=== PATIENT | female | born 1935 | race Caucasian/White ===

== ENCOUNTER 2017-09-02 12:23 | Emergency (ER) | payer OTHER ==
--- NOTE | 2017-09-02 14:16 | RAD REPORT ---
EXAM DESCRIPTION: CT - [id number] - 09/02/2017 2:01 pm CLINICAL HISTORY: Trauma, head and neck injury. COMPARISON: None. TECHNIQUE: Axial 5 mm thick images of the head were obtained. Axial 2 mm thick images of the cervical spine were obtained with sagittal and coronal reconstruction images generated and reviewed. All CT scans are performed using dose optimization technique as appropriate and may include automated exposure control or mA/KV adjustment according to patient size. FINDINGS: CT HEAD WITHOUT CONTRAST: No acute hemorrhage, hydrocephalus or extra-axial collection is identified.Moderate generalized brain atrophy is present with mild periventricular and deep white matter chronic microvascular ischemic ch anges.No areas of brain edema or midline shift. The paranasal sinuses and mastoids are clear.The calvarium is intact. CT CERVICAL SPINE WITHOUT CONTRAST: No fracture or subluxation.Advanced midcervical degenerative change is present that C4-5 and C5-6 wit h kyphosis. 2 mm retrolisthesis of C5 on 6 is noted. 2 mm retrolisthesis of C6 on 7 is seen.No prever tebral soft tissues swelling is identified. Heavy carotid calcifications. IMPRESSION: No acute intracranial or cervical spine findings. Advanced midcervical degenerative change.
--- NOTE | 2017-09-02 15:36 | ER ---
Nurse's Notes [facility] Name: Charlotte Blake Age: 81 yrs Sex: Female : 1935 Arrival Date: 09/02/2017 Time: 12:34 Bed 13 Private MD: Diagnosis: Superficial injury of head;Headache Presentation: 09/02 12:34 Presenting complaint: EMS states: was called for an unwitnessed fall, per [place], pt hj was seen laying on the side of the bed, apparently from a fall, per pt, she wanted to go to the bathroom and she slipped and fell; complaints of L temporal headache; no obvious deformity; denies nausea and vomiting; pt is incontinent; BGL- 137; A\T\O x3 on and off, with hx of dementia;. Transition of care: patient was not received from another setting of care. Onset of symptoms was September 02, 2017. Initial Sepsis Screen: Does the patient meet any 2 criteria? No. Patient's initial sepsis screen is negative. Does the patient have a suspected source of infection? No. Patient's initial sepsis screen is negative. Care prior to arrival: None. 12:34 Method Of Arrival: EMS: [facility] 12:34 Acuity: [place] 4 12:36 Mechanism of Injury: Fall. Trauma event details: Injury occurred in the [place], Injury occurred: at home. Injury occurred: September 02, 2017. Triage Assessment: 12:45 General: Appears in no apparent distress. uncomfortable, Behavior is calm, cooperative, hj appropriate for age. Pain: Complains of pain in L temporal. Trauma Activation: Not Applicable Physician: ED Physician; Name: ; Notified At: ; Arrived At: Physician: General Surgeon; Name: ; Notified At: ; Arrived At: Physician: Radiology; Name: ; Notified At: ; Arrived At: Physician: Respiratory; Name: ; Notified At: ; Arrived At: Physician: Lab; Name: ; Notified At: ; Arrived At: Historical: - Allergies: 12:41 No Known Allergies; hj - Home Meds: 12:41 carvedilol 3.125 mg oral tab 1 tab 2 times per day [Active]; levothyroxine 50 mcg tab 1 hj tab once daily [Active]; olanzapine 20 mg oral tab 1 tab once daily [Active]; pantoprazole 40 mg oral TbEC 1 tab once daily [Active]; paroxetine HCl 10 mg oral tab 1 tab once daily [Active]; trazodone 100 mg Oral tab 2 tabs nightly [Active]; - PMHx: 12:41 Atrial Fib; hj - PSHx: 12:41 Unable to obtain; hj - Immunization history:: Adult Immunizations up to date. - Social history:: Smoking status: Patient/guardian denies using tobacco, Patient/guardian denies using alcohol. - Immunization history: Last tetanus immunization: unknown. Screenin:41 Abuse screen: Denies threats or abuse. Denies injuries from another. Nutritional hj screening: No deficits noted. Tuberculosis screening: No symptoms or risk factors identified. Fall Risk Fall in past 12 months (25 points). Secondary diagnosis (15 points). Primary Survey: 12:40 A: Airway: patent, No supplemental oxygen in use on arrival. Oral cavity: clear, gag hj reflex present, Trachea midline. Breathing/Chest: Respiratory pattern: regular, Respiratory effort: spontaneous, unlabored, Breath sounds: clear, Chest inspection: symmetrical rise and fall of the chest. Circulation: Cardiac rhythm: sinus rhythm Heart tones present. Pulses: palpable right radial artery and left radial artery. Skin color: pink, Skin temperature: warm, dry. Disability Alert. 12:45 Reassessment Airway Airway Patent Oxygen No O2 Oral cavity Clear +Gag reflex Trachea hj Midline Breathing/Chest Respiratory pattern Regular Respiratory effort Spontaneous Unlabored Breath sounds Clear Chest inspection Symmetrical Circulation Heart rhythm Atrial fibrillation Heart tones Present Pulses Palpable Color [place] Temperature Warm Dry Disability Alert. Secondary Survey: 12:40 HEENT: Head Other complaints of L caodaism area pain;. hj 12:40 Gastrointestinal: No deficits noted. : No signs and/or symptoms were reported hj regarding the genitourinary system. Musculoskeletal: Reports pain in L caodaism. Assessment: 12:34 General: Appears in no apparent distress. uncomfortable, Behavior is calm, cooperative, hj appropriate for age. Pain: Complains of pain in L caodaism. Neuro: Level of Consciousness is awake, alert, obeys commands, Oriented to person, place, time, situation, Appropriate for age. EENT: No signs and/or symptoms were reported regarding the EENT system. Cardiovascular: Capillary refill < 3 seconds Patient's skin is warm and dry. Respiratory: Airway is patent Respiratory effort is even, unlabored, Respiratory pattern is regular, symmetrical. GI: No signs and/or symptoms were reported involving the gastrointestinal system. : No signs and/or symptoms were reported regarding the genitourinary system. Derm: No signs and/or symptoms reported regarding the dermatologic system. Musculoskeletal: Reports pain in L caodaism. 13:30 Reassessment: Patient and/or family updated on plan of care and expected duration. Pain hj level reassessed. Patient is alert, oriented x 3, equal unlabored respirations, skin warm/dry/pink. 14:30 Reassessment: Patient and/or family updated on plan of care and expected duration. Pain hj level reassessed. Patient is alert, oriented x 3, equal unlabored respirations, skin warm/dry/pink. 15:30 Reassessment: Patient and/or family updated on plan of care and expected duration. Pain hj level reassessed. Patient is alert, oriented x 3, equal unlabored respirations, skin warm/dry/pink. 16:14 Reassessment: Patient and/or family updated on plan of care and expected duration. Pain hj level reassessed. Patient is alert, oriented x 3, equal unlabored respirations, skin warm/dry/pink. report given to Charisma Jenkins RN. 16:22 Reassessment: still pending ride from [facility]. Vital Signs: 12:42 BP 167 / 87; Pulse 75; Resp 18; Temp 97.8(TE); Pulse Ox 95% on R/A; Weight 54.88 kg; Height 5 ft. 2 in. (157.48 cm); 13:30 BP 158 / 55; Pulse 65; Resp 18; Pulse Ox 100% on R/A; hj 14:30 BP 176 / 62; Pulse 70; Resp 18; Pulse Ox 100% on R/A; hj 15:30 BP 175 / 65; Pulse 69; Resp 18; Pulse Ox 100% on R/A; hj 16:09 BP 172 / 76; Pulse 76; Resp 18; Pulse Ox 100% on R/A; hj 12:42 Body Mass Index 22.13 (54.88 kg, 157.48 cm) [place] Coma Score: 12:42 Eye Response: spontaneous(4). Verbal Response: oriented(5). Motor Response: obeys hj commands(6). Total: 15. Trauma Score (Adult): 12:42 Eye Response: spontaneous(1); Verbal Response: oriented(1); Motor Response: obeys hj commands(2); Systolic BP: > 89 mm Hg(4); Respiratory Rate: 10 to 29 per min(4); [place] Score: 15; Trauma Score: 12 ED Course: 12:34 Patient arrived in ED. hj 12:34 Behzad Fong RN is Primary Nurse. hj 12:37 Gregory Locke NP is PHCP. pm1 12:37 Duane Maria MD is Attending Physician. pm1 12:38 Triage completed. hj 12:45 Arm band placed on right wrist. hj 12:46 Patient has correct armband on for positive identification. Bed in low position. Call hj light in reach. Side rails up X 1. 12:46 Patient maintains SpO2 saturation greater than 95% on room air. hj 12:47 Thermoregulation: warm blanket given to patient. 13:[address] via stretcher. 13:55 CT completed. Patient tolerated procedure well. Patient moved to CT via stretcher. 14:02 CT Head C Spine In Process Unspecified. EDMS 16:08 No provider procedures requiring assistance completed. Patient did not have IV access hj during this emergency room visit. Administered Medications: No medications were administered Intake: 16:09 PO: 0ml; Total: 0ml. hj Outcome: 15:35 Discharge ordered by . pm1 16:08 Discharged to [facility]. Report called to Charisma Jenkins RN Transfer form hj completed. 16:08 Condition: stable 16:08 Patient's length of stay was not longer than 2 hours. 16:09 Discharge instructions given to patient, Instructed on discharge instructions, follow hj up and referral plans. Demonstrated understanding of instructions, follow-up care. 16:49 Patient left the ED. Signatures: Dispatcher [employer] EDTX Davina Murcia Shannon Behzad Fong RN RN Gregory Abreu NP CHOKER HOOKER pm1
--- NOTE | 2017-09-02 15:36 | EDPHYS ---
Physician Documentation [facility] Name: Charlotte Blake Age: 81 yrs Sex: Female : 1935 Arrival Date: 09/02/2017 Time: 12:34 Bed 13 Private MD: ED Physician Duane Maria HPI: 09/02 14:00 This 81 yrs old Female presents to ER via EMS with complaints of Fall Injury. pm1 14:00 Details of fall: The patient fell from an upright position, while standing. Onset: The pm1 symptoms/episode began/occurred just prior to arrival. Associated injuries: The patient sustained injury to the head, pain. The patient has not recently seen a physician. Patient getting out of bed to go to the restroom and she slipped and fell. Patient complaining of left sided headache. Historical: - Allergies: 12:41 No Known Allergies; hj - Home Meds: 12:41 carvedilol 3.125 mg oral tab 1 tab 2 times per day [Active]; levothyroxine 50 mcg tab 1 hj tab once daily [Active]; olanzapine 20 mg oral tab 1 tab once daily [Active]; pantoprazole 40 mg oral TbEC 1 tab once daily [Active]; paroxetine HCl 10 mg oral tab 1 tab once daily [Active]; trazodone 100 mg Oral tab 2 tabs nightly [Active]; - PMHx: 12:41 Atrial Fib; hj - PSHx: 12:41 Unable to obtain; hj - Immunization history:: Adult Immunizations up to date. - Social history:: Smoking status: Patient/guardian denies using tobacco, Patient/guardian denies using alcohol. - Immunization history: Last tetanus immunization: unknown. ROS: 14:00 Constitutional: Negative for fever, chills, and weight loss, Eyes: Negative for injury, pm1 pain, redness, and discharge, ENT: Negative for injury, pain, and discharge, Neck: Negative for injury, pain, and swelling, Cardiovascular: Negative for chest pain, palpitations, and edema, Respiratory: Negative for shortness of breath, cough, wheezing, and pleuritic chest pain, Abdomen/GI: Negative for abdominal pain, nausea, vomiting, diarrhea, and constipation, Back: Negative for injury and pain, MS/Extremity: Negative for injury and deformity, Skin: Negative for injury, rash, and discoloration. 14:00 Neuro: Positive for headache, Negative for dizziness, syncope, near syncope. Exam: 14:00 Constitutional: This is a well developed, well nourished patient who is awake, alert, pm1 and in no acute distress. Head/Face: Normocephalic, atraumatic. Eyes: Pupils equal round and reactive to light, extra-ocular motions intact. Lids and lashes normal. Conjunctiva and sclera are non-icteric and not injected. Cornea within normal limits. Periorbital areas with no swelling, redness, or edema. ENT: Nares patent. No nasal discharge, no septal abnormalities noted. Tympanic membranes are normal and external auditory canals are clear. Oropharynx with no redness, swelling, or masses, exudates, or evidence of obstruction, uvula midline. Mucous membranes moist. Neck: Trachea midline, no thyromegaly or masses palpated, and no cervical lymphadenopathy. Supple, full range of motion without nuchal rigidity, or vertebral point tenderness. No Meningismus. Chest/axilla: Normal chest wall appearance and motion. Nontender with no deformity. No lesions are appreciated. Cardiovascular: Regular rate and rhythm with a normal S1 and S2. No gallops, murmurs, or rubs. Normal PMI, no JVD. No pulse deficits. Respiratory: Lungs have equal breath sounds bilaterally, clear to auscultation and percussion. No rales, rhonchi or wheezes noted. No increased work of breathing, no retractions or nasal flaring. Abdomen/GI: Soft, non-tender, with normal bowel sounds. No distension or tympany. No guarding or rebound. No evidence of tenderness throughout. Back: No spinal tenderness. No costovertebral tenderness. Full range of motion. Skin: Warm, dry with normal turgor. Normal color with no rashes, no lesions, and no evidence of cellulitis. MS/ Extremity: Pulses equal, no cyanosis. Neurovascular intact. Full, normal range of motion. 14:00 Neuro: Orientation: to person, place, situation, Motor: moves all fours, Sensation: is normal, no obvious gross deficits. Vital Signs: 12:42 BP 167 / 87; Pulse 75; Resp 18; Temp 97.8(TE); Pulse Ox 95% on R/A; Weight 54.88 kg; hj Height 5 ft. 2 in. (157.48 cm); 13:30 BP 158 / 55; Pulse 65; Resp 18; Pulse Ox 100% on R/A; hj 14:30 BP 176 / 62; Pulse 70; Resp 18; Pulse Ox 100% on R/A; hj 15:30 BP 175 / 65; Pulse 69; Resp 18; Pulse Ox 100% on R/A; hj 16:09 BP 172 / 76; Pulse 76; Resp 18; Pulse Ox 100% on R/A; hj 12:42 Body Mass Index 22.13 (54.88 kg, 157.48 cm) [place] Coma Score: 12:42 Eye Response: spontaneous(4). Verbal Response: oriented(5). Motor Response: obeys hj commands(6). Total: 15. Trauma Score (Adult): 12:42 Eye Response: spontaneous(1); Verbal Response: oriented(1); Motor Response: obeys hj commands(2); Systolic BP: > 89 mm Hg(4); Respiratory Rate: 10 to 29 per min(4); [place] Score: 15; Trauma Score: 12 MDM: 12:41 Patient medically screened. pm1 15:33 Data reviewed: vital signs. Data interpreted: Pulse oximetry: on room air is 95 %. pm1 Interpretation: normal. Counseling: I had a detailed discussion with the patient and/or guardian regarding: the historical points, exam findings, and any diagnostic results supporting the discharge/admit diagnosis, radiology results, the need for outpatient follow up, to return to the emergency department if symptoms worsen or persist or if there are any questions or concerns that arise at home. 09/02 13:09 Order name: CT Head C Spine; Complete Time: 14:35 pm1 Administered Medications: No medications were administered Disposition: 09/02/17 15:35 Discharged to Home. Impression: Superficial injury of head, Headache. - Condition is Stable. - Discharge Instructions: Head Injury, Adult. - Medication Reconciliation Form, Thank You Letter form. - Follow up: Emergency Department; When: As needed; Reason: Worsening of condition. Follow up: Private Physician; When: 2 - 3 days; Reason: Recheck today's complaints, Continuance of care, Re-evaluation by your physician. - Problem is new. - Symptoms have improved. Addendum: 09/03/2017 18:46 Co-signature as Attending Physician, Duane Maria MD. g s Signatures: Dispatcher [employer] EDMS Behzad Fong, RN RN hj Gregory Locke, CATSHOVEL DRIVER CATSHOVEL DRIVER pm1 Duane Maria MD MD Corrections: (The following items were deleted from the chart) 09/02 15:35 15:35 09/02/2017 15:35 Discharged to Home. Impression: Superficial injury of head. pm1 Condition is Stable. Forms are Medication Reconciliation Form, Thank You Letter, Antibiotic Education, Prescription Opioid Use. Follow up: Emergency Department; When: As needed; Reason: Worsening of condition. Follow up: Private Physician; When: 2 - 3 days; Reason: Recheck today's complaints, Continuance of care, Re-evaluation by your physician. Problem is new. Symptoms have improved. pm1 16:49 15:35 09/02/2017 15:35 Discharged to Home. Impression: Superficial injury of head; hj Headache. Condition is Stable. Forms are Medication Reconciliation Form, Thank You Letter, Antibiotic Education, Prescription Opioid Use. Follow up: Emergency Department; When: As needed; Reason: Worsening of condition. Follow up: Private Physician; When: 2 - 3 days; Reason: Recheck today's complaints, Continuance of care, Re-evaluation by your physician. Problem is new. Symptoms have improved. pm1
== END 2017-09-02 16:49 | disposition home or self-care (01) ==
LOC: ER 12:23
DX: S00.90XA Unspecified superficial injury of unspecified part of head, initial encounter (principal); R51 Headache; W01.0XXA Fall on same level from slipping, tripping and stumbling without subsequent striking against object, initial encounter; Y93.01 Activity, walking, marching and hiking; Y92.003 Bedroom of unspecified non-institutional (private) residence as the place of occurrence of the external cause; I48.91 Unspecified atrial fibrillation
CPT/HCPCS: 70450; 72125; 99284